=== PATIENT | female | born 1980 | race Caucasian/White ===

== ENCOUNTER 2016-03-24 08:31 | Inpatient (IN) | payer OTHER ==
[~2016-03-24] VITALS: Ht 152.4 cm; Wt 78.0 kg
[~2016-03-24 08:31] MED LIST: LEVOCETIRIZINE D5 MG PO; MONTELUKAST SOD10 MG PO; PULMICORT FLEX90 MCG; VENTOLIN H0.09 MG/Ac INH; [UNRECOGNIZED DRUG - OTHER] PO
[2016-03-24 08:49] VITALS: BP 140/79
[2016-03-24] MEDS ORDERED: [UNRECOGNIZED DRUG - OTHER] PO (08:52)
[2016-03-24] MEDS ORDERED: MAGNESIUM500 M2 PO (08:53)
[2016-03-24 11:49] LABS: ABSOLUTE BASOPHIL COUNT 0 /CUMM (0.0-0.2); ABSOLUTE EOSINOPHIL COUNT 0.1 /CUMM (0.0-0.7); ABSOLUTE GRANULOCYTE CT 7.7 /CUMM (1.4-6.5); ABSOLUTE LYMPH COUNT 1.8 /CUMM (1.2-3.4); ABSOLUTE MONOCYTE COUNT 0.4 /CUMM (0.10-0.60); BASOPHIL % 0.3 % (0.0-2.0); EOSINOPHIL % 1.1 % (0-5); GRANULOCYTE % 76.6 % (42.2-75.2); HEMATOCRIT 35.5 % (37-47); MEAN CORPUSCULAR HGB 30.3 PG (27.0-31.0); MEAN CORPUSCULAR HGB CONC 34.2 G/DL (33.0-37.0); MEAN CORPUSCULAR VOLUME 88.5 FL (81.0-99.0); MEAN PLATELET VOLUME 8.1 FL (7.4-10.4); PLATELET COUNT 188 /CUMM (130-400); RBC DISTRIBUTION WIDTH 13.6 % (11.5-14.5); RED BLOOD CELL CT 4.01 /CUMM (4.20-5.40)
--- NOTE | 2016-03-24 13:25 | History & Physical ---
General Information and HPI MD Statement: I have seen and personally examined MONAE ALVAREZ and documented this H&P. The patient is a 35 year old female at39 [] weeks and [] days gestation who presented with a chief complaint of []. Wants to have her baby. History of Present Illness: 35-year-old 3 para 1011 at 39 weeks' gestation who desires elective induction. Patient's care has been uncomplicated eyes she denies rupture of membranes headache visual changes or contractions. We have signed a consent we have reviewed the risks for an induction. Allergies/Medications Allergies: Coded Allergies: NO KNOWN ALLERGIES (08/02/15) Home Med list Albuterol Sulfate (Ventolin Hfa) 90 MCG HFA.AER.AD 2 PUFF INH PRN ASTHMA ( Reported) LEVOCETIRIZINE DIHYDROCHLORIDE (Levocetirizine Dihydrochloride) 5 MG TABLET 1 TAB PO QPM ALLERGIES/ASTHMA (Reported) Magnesium Oxide (Magnesium) 500 MG CAPSULE 1 CAP PO D CONSTIPATION (Reported) Montelukast Sodium 10 MG TABLET 1 TAB PO QPM ASTHMA (Reported) Pnv73/Iron,Carb&Glu/FA/Dss/Dha (Citranatal Assure Combo Pack) 35 MG IRON-1 MG-50 MG-300 MG COMBO..PKG 1 TAB PO DAILY (Reported) Past History hspt tutor History : 3 Para: 1 Last Menstrual Period: 06/25/15 Past hspt tutor History: septum repair Medical History Neurological: NONE EENT: NONE Cardiovascular: NONE Respiratory: asthma Gastrointestinal: NONE Hepatic: NONE Renal: NONE Musculoskeletal: NONE Psychiatric: NONE Endocrine: NONE Blood Disorders: NONE Cancer(s): NONE Surgical History Pertinent Surgical History: N Past Family/Social History Psychosocial History Smoking Status: Former Smoker Review of Systems Review of Systems: -13 point review of systems Exam & Diagnostic Data Last 24 Hrs of Vital Signs/I&O Vital Signs Date Time Temp Pulse Resp B/P Pulse O2 O2 Flow FiO2 Ox Delivery Rate 03/24 0849 140/79 Intake & Output 03/24 1600 03/24 0800 03/24 0000 Intake Total Output Total Balance Patient 172 lb Weight Obstetric Exam Wgt Gained During : 31 Pelvimetry: Test is a 6 lbs. 7 oz. Dilation (cm): 2 Effacement (%): 80 Station: 0 Membranes: intact Fluid: unknown Fundal Height (cm): 39 Multiple Gestation? No Contractions: none Infant #1 - FHR Baseline: 140 Category: 1 Estimated Weight: 3200 Presentation: vtx Patient for Induction? Yes Labs Blood Type & Rh: ab- Antibody Screen: neg Hct/Hgb & Platelets #1: Hct/Hgb & Platelets #2: Rubella: nr VDRL #1: nr VDRL #2: nr HbsAg: neg HIV #1: neg HIV #2 neg 1 Hr P Group B Strep: neg Initial Ultrasound: nl Anatomy Ultrasound: nl Genetic Testing: neg Assessment/Plan As Ranked By This Provider Problem List: 1. Core Measures/Miscellaneous Venous Thromboembolism VTE Risk Factors: / VTE Contraindications: No Contraindications VTE Prophylaxis Ordered Inpt: Mech & Pharm VTE Diagnosis: No Beta Marianne Is Beta Marianne a Home Med? No Antibiotics Is Patient on Antibiotics? No
--- NOTE | 2016-03-24 13:33 | PN- Obstetrical ---
Subjective Subjective: no complaints Objective Last 24 Hrs of Vital Signs/I&O Vital Signs Date Time Temp Pulse Resp B/P Pulse O2 O2 Flow FiO2 Ox Delivery Rate 03/24 0849 140/79 Intake & Output 03/24 1600 03/24 0800 03/24 0000 Intake Total Output Total Balance Patient 172 lb Weight Physical Exam: vss ABD SOFT PELVIC 3CM Obstetric Exam Dilation (cm): 3 Effacement (%): 80 Station: 0 Membranes: AROM Fluid: clear Multiple Gestation? No Contractions: Q 3 MINUTES #1 - FHR Baseline: 140 Category: 1 Estimated Weight: 3200 Presentation: vtx Assessment/Plan Assessment/Plan ASSESS TERM INDUCTION PLAN INDUCTION PITOCIN
[2016-03-25 08:54] LABS: ABSOLUTE BASOPHIL COUNT 0 /CUMM (0.0-0.2); ABSOLUTE EOSINOPHIL COUNT 0.1 /CUMM (0.0-0.7); ABSOLUTE GRANULOCYTE CT 10.3 /CUMM (1.4-6.5); ABSOLUTE LYMPH COUNT 1.9 /CUMM (1.2-3.4); ABSOLUTE MONOCYTE COUNT 0.8 /CUMM (0.10-0.60); BASOPHIL % 0.3 % (0.0-2.0); EOSINOPHIL % 0.9 % (0-5); GRANULOCYTE % 78.6 % (42.2-75.2); HEMATOCRIT 35.6 % (37-47); MEAN CORPUSCULAR HGB 30.4 PG (27.0-31.0); MEAN CORPUSCULAR HGB CONC 34.5 G/DL (33.0-37.0); MEAN PLATELET VOLUME 7.8 FL (7.4-10.4); PLATELET COUNT 170 /CUMM (130-400); RBC DISTRIBUTION WIDTH 13.6 % (11.5-14.5); RED BLOOD CELL CT 4.04 /CUMM (4.20-5.40); WHITE BLOOD CELL COUNT 13.1 /CUMM (4.8-10.8)
--- NOTE | 2016-03-25 11:15 | PN- Post Delivery/GYN ---
Subjective Subjective: no complaints no eye swelling Objective Last 24 Hrs of Vital Signs/I&O as per paper chart Physical Exam: vss abd soft nt fundus firm nt lochia minimal ext + 2 ext-edema Assessment/Plan Assessment/Plan assess s/p plan contnPPC
[2016-03-26] MEDS ORDERED: IBUPROFEN800 M1 PO (09:24)
== END 2016-03-26 11:07 | DRG 775 ==
LOC: GNO 08:31
PROVIDERS: ADMIT Specialist
PROC: 10E0XZZ Delivery of Products of Conception, External Approach (ICD-10-PCS; principal; 2016-03-24)
PROC: 3E033VJ Introduction of Other Hormone into Peripheral Vein, Percutaneous Approach (ICD-10-PCS; principal; 2016-03-24)
DX: O80 Encounter for full-term uncomplicated delivery (principal); Z37.0 Single live birth; Z3A.39 39 weeks gestation of pregnancy
CPT/HCPCS: GNOS; 81001; 86920; 86922; 87086; J7120